=== PATIENT | female | born 1955 | race African-American/Black ===

== ENCOUNTER 2016-07-23 13:45 | Emergency (ER) | payer MEDICAID ==
[~2016-07-23] VITALS: Ht 154.9 cm; Wt 98.0 kg
[~2016-07-23 13:45] MED LIST: AMLO10TA80; ASPI-1035; DONE10TA4; FURO20TA; GEMF600T PO; HYDR-4134 PO; IOHEXOL-350 100 ML BOTTLE ONE; METF-240; METO50TA95; P20; POTASSIUM CL ER; SODIUM CHLORIDE 0.9% 10ML VIAL ONE; T3; VALS320T9
[2016-07-23] MEDS ORDERED: OXYCODONE HCL/ACETAMINOPHEN 5/325MG TABLET PO ONE ×2 (15:00→18:30)
[2016-07-23] MEDS ORDERED: SODIUM CHLORIDE 0.9% 1,000 ML IV ONE (15:30)
[2016-07-23 17:35] LABS: ANION GAP 21; CALCIUM 9.6 mg/dL (8.5-10.1); CARBON DIOXIDE 19 mEq/L (21-32); CHLORIDE 105 mEq/L (98-107); INDEX HEMOLYSI 2 (1-3); INDEX ICTERIC 1 (1-4); INDEX LIPEMIC 1 (1-3); UREA NITROGEN BLOOD 12 mg/dL (7-21); eGFR > 60 mL/min (>60)
[2016-07-23 18:18] VITALS: BP 131/84
[2016-07-23 18:56] LABS: ANION GAP 16; CARBON DIOXIDE 26 mEq/L (21-32); CHLORIDE 105 mEq/L (98-107); INDEX HEMOLYSI 1 (1-3); INDEX ICTERIC 1 (1-4); INDEX LIPEMIC 1 (1-3); UREA NITROGEN BLOOD 12 mg/dL (7-21); eGFR > 60 mL/min (>60)
[2016-07-23] MEDS ORDERED: ONDANSETRON HCL 4MG/2ML VIAL IV ONE (19:00)
[2016-07-23] MEDS ORDERED: ONDANSETRON 4MG ODT PO ONE (21:45)
== END 2016-07-23 22:14 | disposition home or self-care (01) ==
LOC: ER 14:53
DX: R07.9 Chest pain, unspecified (principal); E11.9 Type 2 diabetes mellitus without complications; K21.9 Gastro-esophageal reflux disease without esophagitis; I10 Essential (primary) hypertension; Z88.8 Allergy status to other drugs, medicaments and biological substances; Z79.899 Other long term (current) drug therapy; Z79.82 Long term (current) use of aspirin
CPT/HCPCS: 36415; 71020; 71275; 80048; 82962; 84484; 85379; 96361; 96374; 99285; A4216; J2405; J7030; Q0162; Q9967

== ENCOUNTER 2022-09-15 20:58 | Inpatient (IN) | payer MEDICARE, MEDICAID ==
[~2022-09-15] VITALS: Ht 170.2 cm; Wt 80.7 kg
[~2022-09-15 20:58] MED LIST changes: +ACET-3161; -ASPI-1035; +ASPI-1406; +DONE10TA11; -DONE10TA4; +FURO-152; -FURO20TA; -IOHEXOL-350 100 ML BOTTLE ONE; -METF-240; +METF-414; -SODIUM CHLORIDE 0.9% 10ML VIAL ONE; -T3; +VALS320T2; -VALS320T9
[2022-09-15 23:01] LABS: BASOPHILS % 0.5 % (0.0-2.0); EOSINOPHILS % 2.4 % (0.0-5.0); HEMATOCRIT. 41.9 % (36.0-48.0); HEMOGLOBIN. 13.9 g/dL (12.0-16.0); LYMPHOCYTES % 27.4 % (20.0-50.0); MEAN CORPUSCULAR HEMOGLOBIN 26.9 pg (28.0-32.0); MEAN PLATELET VOLUME 9.1 fl (7.4-10.4); MONOCYTES % 10.4 % (2.0-8.0); NEUTROPHILS % 59.3 % (40.0-76.0); PLATELET 228 x1000/uL (130-400); RED BLOOD CELL COUNT 5.17 mill/uL (4.2-5.4)
[2022-09-15 23:08] LABS: CHLORIDE 109 mEq/L (98-107)
[2022-09-15] MEDS ORDERED: ONDANSETRON HCL 4MG/2ML INJ IV NR (23:36)
[2022-09-15 23:41] LABS: CLARITY URINE CLEAR (CLEAR); COLOR URINE YELLOW (YELLOW); KETONES URINE NEGATIVE (NEGATIVE); LEUKOCYTE ESTERASE URINE NEGATIVE (NEGATIVE); NITRITE URINE NEGATIVE (NEGATIVE); OCCULT BLOOD URINE NEGATIVE (NEGATIVE); PH URINE 7.5 (4.5-8.0); PROTEIN URINE 2+ (NEGATIVE); SPECIFIC GRAVITY URINE 1.012 (1.005-1.030); UROBILINOGEN URINE 0.2 E.U./dL (0.2-1.0)
[2022-09-15] MEDS ORDERED: SODIUM CHLORIDE 0.9% 1,000 ML IV ONE (23:45)
[2022-09-15] MEDS: KETOROLAC 30MG/ML VIAL IV NR (23:51)
[2022-09-16 00:12] LABS: PROTHROMBIN TIME 10.6 sec (9.6-11.0)
[2022-09-16] MEDS: KETOROLAC 30MG/ML VIAL IV NR ×3 (02:09→03:18)
[2022-09-16] MEDS ORDERED: ACETAMINOPHEN 325MG TABLET PO ONE (03:15)
[2022-09-16] MEDS ORDERED: GUAIFENESIN 200MG/10ML SUGAR FREE UDC PO PRN (04:15)
[2022-09-16] MEDS ORDERED: ACETAMINOPHEN 325MG TABLET PO PRN (04:15)
[2022-09-16] MEDS ORDERED: MAGNESIUM/ALUMINUM HYDROXIDE/SIMETHICONE 30ML UDC PO PRN (04:15)
[2022-09-16] MEDS: DEXT 5%/0.45% NACL 1000ML 1,000 ML IV SCH ×2 (04:15→17:42)
[2022-09-16] MEDS ORDERED: DOCUSATE SODIUM 100MG CAPSULE PO PRN (04:15)
[2022-09-16] MEDS ORDERED: IPRATROPIUM/ALBUTEROL 0.5-3(2.5)MG/3ML NEB HHN PRN (04:15)
[2022-09-16] MEDS ORDERED: KETOROLAC 30MG/ML VIAL IV PRN (04:15)
[2022-09-16] MEDS ORDERED: ONDANSETRON HCL 4MG/2ML INJ IV PRN (04:15)
[2022-09-16] MEDS ORDERED: CLONIDINE 0.1MG TABLET PO ONE (04:15)
[2022-09-16] MEDS: ENOXAPARIN 40MG/0.4ML SYR SUBCUT SCH (04:15)
[2022-09-16 05:12] LABS: BASOPHILS % 0.5 % (0.0-2.0); HEMOGLOBIN. 12.7 g/dL (12.0-16.0); LYMPHOCYTES % 27.6 % (20.0-50.0); MEAN CORPUSCULAR HEMOGLOBIN 26.8 pg (28.0-32.0); MEAN CORPUSCULAR VOLUME 80.4 fL (81.0-99.0); MEAN PLATELET VOLUME 8.6 fl (7.4-10.4); NEUTROPHILS % 59.9 % (40.0-76.0); PLATELET 216 x1000/uL (130-400); RED BLOOD CELL COUNT 4.73 mill/uL (4.2-5.4); RED CELL DISTRIBUTION WIDTH 14.6 % (11.6-14.6)
[2022-09-16 05:25] LABS: CHLORIDE 112 mEq/L (98-107)
[2022-09-16 05:38] LABS: HDL CHOLESTEROL 59 mg/dL (40-59); LDL CHOLESTEROL 127 mg/dL (5-100); T4 FREE 1.04 ng/dL (0.76-1.46)
[2022-09-16 06:23] LABS: VITAMIN B12 SERUM 403 pg/mL (211-911)
[2022-09-16 07:51] LABS: *AMPHETAMINES SCREEN URINE NEGATIVE (NEGATIVE); *BARBITURATES SCREEN URINE NEGATIVE (NEGATIVE); *BENZODIAZEPINES SCREEN URINE NEGATIVE (NEGATIVE); *COCAINE SCREEN URINE NEGATIVE (NEGATIVE); CANNABINOID URINE SCREEN NEGATIVE (NEGATIVE); METHADONE URINE SCREEN NEGATIVE (NEGATIVE); OPIATES URINE SCREEN NEGATIVE (NEGATIVE); PHENCYCLIDINE URINE SCREEN NEGATIVE (NEGATIVE)
[2022-09-16 09:32] LABS: FOLIC ACID (FOLATE) SERUM > 20.00 ng/mL (>5.38)
[2022-09-16 10:59] VITALS: BP 146/78
[2022-09-16] MEDS: AMLODIPINE 10MG TABLET PO SCH (12:02)
[2022-09-16] MEDS: PANTOPRAZOLE SODIUM 40 MG/VIAL IV SCH (12:02)
[2022-09-16] MEDS: CLONIDINE 0.1MG TABLET PO PRN ×2 (12:06→20:20)
[2022-09-16 16:00] VITALS: BP 168/90
[2022-09-16] MEDS ORDERED: DEXTROSE 50% WATER 50ML SYRINGE IV PRN (16:00)
[2022-09-16] MEDS ORDERED: MAGNESIUM 4 G PREMIX 100 ML IV NR (16:30)
[2022-09-16] MEDS ORDERED: POTASSIUM PHOS,M-BASIC-D-BASIC 30 MMOL in DEXT 5% WATER 500 ML IV NR (17:00)
[2022-09-16] MEDS: BLOOD SUGAR DIAGNOSTIC STRIP TEST SCH ×2 (17:00→20:23)
[2022-09-16] MEDS: INSULIN LISPRO 100 UNITS/ML SUBCUT SCH ×2 (17:30→20:24)
[2022-09-16] MEDS: METFORMIN HCL 500MG TABLET PO SCH (17:40)
[2022-09-16] MEDS: CLONIDINE 0.1MG TABLET PO SCH (17:40)
[2022-09-16 20:00] VITALS: BP 171/93
[2022-09-16 21:24] VITALS: BP 150/75
[2022-09-16] MEDS: HYDRALAZINE HCL 50MG TABLET PO SCH (21:24)
[2022-09-17] MEDS: ACETAMINOPHEN 325MG TABLET PO PRN ×3 (00:36→23:55)
[2022-09-17 03:15] VITALS: BP 167/100
[2022-09-17] MEDS: KETOROLAC 15MG/ML VIAL IV PRN ×3 (03:16→17:38)
[2022-09-17] MEDS: CLONIDINE 0.1MG TABLET PO PRN (03:16)
[2022-09-17] MEDS: ENOXAPARIN 40MG/0.4ML SYR SUBCUT SCH (03:17)
[2022-09-17 05:26] VITALS: BP 143/80
[2022-09-17] MEDS: HYDRALAZINE HCL 50MG TABLET PO SCH ×3 (05:26→21:32)
[2022-09-17] MEDS: CLONIDINE 0.1MG TABLET PO SCH ×2 (05:26→17:37)
[2022-09-17] MEDS: BLOOD SUGAR DIAGNOSTIC STRIP TEST SCH ×4 (06:13→21:29)
[2022-09-17] MEDS: INSULIN LISPRO 100 UNITS/ML SUBCUT SCH ×4 (06:14→21:00)
[2022-09-17] MEDS: METFORMIN HCL 500MG TABLET PO SCH ×2 (06:15→17:37)
[2022-09-17] MEDS: DEXT 5%/0.45% NACL 1000ML 1,000 ML IV SCH (06:16)
[2022-09-17 08:00] VITALS: BP 154/88
[2022-09-17] MEDS: PANTOPRAZOLE SODIUM 40 MG/VIAL IV SCH (08:20)
[2022-09-17] MEDS: AMLODIPINE 10MG TABLET PO SCH (08:21)
[2022-09-17 12:00] VITALS: BP 147/93
[2022-09-17 12:13] LABS: BASOPHILS % 0.7 % (0.0-2.0); HEMATOCRIT. 36.8 % (36.0-48.0); HEMOGLOBIN. 12.4 g/dL (12.0-16.0); LYMPHOCYTES % 34.6 % (20.0-50.0); MEAN CORPUSCULAR VOLUME 80.1 fL (81.0-99.0); MEAN PLATELET VOLUME 8.8 fl (7.4-10.4); MONOCYTES % 10.5 % (2.0-8.0); NEUTROPHILS % 50.2 % (40.0-76.0); PLATELET 197 x1000/uL (130-400); RED BLOOD CELL COUNT 4.59 mill/uL (4.2-5.4); RED CELL DISTRIBUTION WIDTH 14.8 % (11.6-14.6)
[2022-09-17 12:22] LABS: CHLORIDE 107 mEq/L (98-107)
[2022-09-17 12:29] LABS: PHOSPHORUS 2.9 mg/dL (2.5-4.9)
[2022-09-17 16:00] VITALS: BP 146/75
[2022-09-17 20:00] VITALS: BP 116/74
[2022-09-18] VITALS: BP 130/91
[2022-09-18] MEDS: KETOROLAC 15MG/ML VIAL IV PRN ×2 (00:52→08:32)
[2022-09-18 04:00] VITALS: BP 157/86
[2022-09-18] MEDS ORDERED: ACETAMINOPHEN 325MG TABLET ONE (05:22)
[2022-09-18] MEDS: ACETAMINOPHEN 325MG TABLET PO PRN (05:25)
[2022-09-18] MEDS: ENOXAPARIN 40MG/0.4ML SYR SUBCUT SCH (05:25)
[2022-09-18] MEDS: HYDRALAZINE HCL 50MG TABLET PO SCH (05:55)
[2022-09-18] MEDS: METFORMIN HCL 500MG TABLET PO SCH (05:55)
[2022-09-18] MEDS: CLONIDINE 0.1MG TABLET PO SCH (05:56)
[2022-09-18] MEDS: INSULIN LISPRO 100 UNITS/ML SUBCUT SCH (07:00)
[2022-09-18 08:00] VITALS: BP 156/89
[2022-09-18] MEDS: BLOOD SUGAR DIAGNOSTIC STRIP TEST SCH (08:18)
[2022-09-18] MEDS: PANTOPRAZOLE SODIUM 40 MG/VIAL IV SCH (08:22)
[2022-09-18] MEDS: AMLODIPINE 10MG TABLET PO SCH (08:22)
[2022-09-18] MEDS ORDERED: OMEP20TA23 MT (09:57)
[2022-09-18] MEDS ORDERED: HYDR-4135 MT (09:57)
[2022-09-18 10:10] VITALS: BP 151/71
== END 2022-09-18 10:30 | disposition home or self-care (01) | DRG 249 ==
LOC: ER 21:45 → 4WST 09-16 03:33 → SUPCPDRO 09-16 09:27
PROVIDERS: ADMIT Internal Medicine; ATTEND Internal Medicine
DX: A08.4 Viral intestinal infection, unspecified (principal); E83.39 Other disorders of phosphorus metabolism; K57.90 Diverticulosis of intestine, part unspecified, without perforation or abscess without bleeding; E78.5 Hyperlipidemia, unspecified; E87.6 Hypokalemia; N28.1 Cyst of kidney, acquired; F41.9 Anxiety disorder, unspecified; I16.1 Hypertensive emergency; E83.42 Hypomagnesemia; E88.09 Other disorders of plasma-protein metabolism, not elsewhere classified; E11.65 Type 2 diabetes mellitus with hyperglycemia; I10 Essential (primary) hypertension; K21.9 Gastro-esophageal reflux disease without esophagitis; M19.90 Unspecified osteoarthritis, unspecified site; Z79.84 Long term (current) use of oral hypoglycemic drugs; Z79.899 Other long term (current) drug therapy; Z88.8 Allergy status to other drugs, medicaments and biological substances
CPT/HCPCS: 36415; 74176; 76770; 80053; 80061; 80305; 81003; 82607; 82746; 82962; 83036; 83605; 83735; 84100; 84439; 84443; 85025; 93005; 93306; 93970; 97162; 99285; C9113; J1650; J1885; J2405; J3475; J3490; J7060

== ENCOUNTER 2023-03-15 19:11 | Emergency (ER) | payer MEDICARE, MEDICAID ==
[~2023-03-15] VITALS: Ht 152.4 cm; Wt 73.0 kg
[~2023-03-15 19:11] MED LIST changes: -ACET-3161; -HYDR-4134 PO; +HYDR-4135 MT; -METO50TA95; +OMEP20TA23 MT; -P20
[2023-03-15 19:14] VITALS: O2SAT 97
[2023-03-15] MEDS ORDERED: SODIUM CHLORIDE 0.9% 1,000 ML IV ONE (20:00)
[2023-03-15] MEDS ORDERED: MORPHINE SULFATE 4 MG/ML CPJ (NOT FOR IM USE) IV ONE (20:00)
[2023-03-15 20:41] LABS: BASOPHILS % 0.4 % (0.0-2.0); DIFFERENTIAL COMMENT 0; EOSINOPHILS % 0.3 % (0.0-5.0); HEMATOCRIT. 38.6 % (36.0-48.0); HEMOGLOBIN. 12.6 g/dL (12.0-16.0); LYMPHOCYTES % 8.5 % (20.0-50.0); MEAN CORPUSCULAR HGB CONC 32.6 g/dL (31.0-37.0); MEAN CORPUSCULAR VOLUME 79.9 fL (81.0-99.0); MEAN PLATELET VOLUME 8.8 fl (7.4-10.4); MONOCYTES % 3.8 % (2.0-8.0); PLATELET 199 x1000/uL (130-400); RED BLOOD CELL COUNT 4.83 mill/uL (4.2-5.4); RED CELL DISTRIBUTION WIDTH 15.6 % (11.6-14.6)
[2023-03-15 20:52] LABS: CHLORIDE 110 mEq/L (98-107); INDEX HEMOLYSI 1 (1-3); INDEX ICTERIC 1 (1-4); INDEX LIPEMIC 1 (1-3); PROTHROMBIN TIME 10.4 sec (9.6-11.0); SODIUM 142 mEq/L (136-145)
[2023-03-15 21:01] LABS: ALANINE AMINOTRANSFERASE 14 IU/L (13-61); ALBUMIN 3.2 g/dL (3.4-5.0); ASPARTATE AMINOTRANSFERASE 13 IU/L (15-37); BILIRUBIN TOTAL 0.3 mg/dL (0.1-1.0); CALCIUM 9.3 mg/dL (8.5-10.1); CARBON DIOXIDE 30 mEq/L (21-32); CREATININE 0.8 mg/dL (0.6-1.3); GLUCOSE 155 mg/dL (70-105); PROTEIN TOTAL 8.4 g/dL (6.0-8.3); UREA NITROGEN BLOOD 17 mg/dL (7-21)
[2023-03-15] MEDS ORDERED: CLONIDINE 0.1MG TABLET PO NR (21:08)
[2023-03-15] MEDS ORDERED: CLONIDINE 0.2MG TABLET PO ONE (21:15)
[2023-03-15] MEDS ORDERED: METF-414 MT (22:50)
[2023-03-15] MEDS ORDERED: FAMO-287 MT (22:50)
[2023-03-15] MEDS ORDERED: ONDA8TAB13 MT (22:50)
[2023-03-15] MEDS ORDERED: MORPHINE SULFATE 4 MG/ML CPJ (NOT FOR IM USE) IV NR (23:45)
[2023-03-15 23:50] VITALS: BP 178/98; PULSE 81; RESP 17; TEMP 98.3
== END 2023-03-16 01:45 | disposition home or self-care (01) ==
LOC: ER 19:11
DX: K52.9 Noninfective gastroenteritis and colitis, unspecified (principal); E11.65 Type 2 diabetes mellitus with hyperglycemia; I10 Essential (primary) hypertension; Z91.199 Patient's noncompliance with other medical treatment and regimen due to unspecified reason; Z79.82 Long term (current) use of aspirin
CPT/HCPCS: 99283; 96374; 96361; 80053; 83690; 85025; 85610; 36415; J2270; J7030